=== PATIENT | male | born 1995 | race Caucasian/White ===

== ENCOUNTER 2017-01-10 13:04 | Inpatient (IN) ==
[2017-01-10 13:28] LABS: Bilirubin,Urine Negative (Negative); Blood,Urine Negative (Negative); Clarity,Urine Clear (Clear); Color,Urine Yellow (Yellow); Glucose,Urine (UA) Normal (Normal); Ketones,Urine Negative (Negative); Leukocyte Esterase,Urine Negative (Negative); Nitrite,Urine Negative (Negative); Protein,Urine Negative (Neg-Trace); Specific Gravity,Urine 1.028 (1.010-1.025); Urobilinogen,Urine Normal (Normal)
--- NOTE | 2017-01-10 13:32 | Emergency Department Note ---
Disposition Clinical Impression: Suicidal ideation Disposition: Admitted As Inpatient Condition: Good Referrals: NONE,PCP [Primary Care Provider] - Forms: ED Satisfaction Letter Time of Disposition: 17:50 Psych HPI - General Chief Complaint: ED Psychiatric Symptoms Stated Complaint: SI, after a terrible break up Time Seen by Provider: 01/10/17 13:07 Source: patient, family Mode of arrival: ambulatory Limitations: no limitations Nursing Notes Reviewed: Yes Vital Signs Reviewed: Yes - History of Present Illness HPI Narrative: 21-year-old male presenting to the emergency department with suicidal ideation and plan. The patient states a girlfriend recently treated on and wanted to commit suicide by taking an entire bottle of Flexeril. He also had homicidal ideations against the man that she cheated on him with. He denies any specific plan to hurt this man. Patient denies any intentional ingestion or self-harm prior to arrival. He states he has never been admitted for psychiatric issues before. Patient is currently being treated for hypothyroidism but has no other medical conditions. Patient denies auditory or visual hallucinations. The patient states he does have fluttering in his chest which started last night he states this commonly occurs when he gets stressed. Patient has no significant cardiac history. Patient otherwise has no complaints of concerns of this time. - Related Data Home Medications Medication Instructions Recorded Confirmed Levothyroxine [Synthroid] 75 mcg PO 0630 10/16/15 10/16/15 Levothyroxine [Synthroid] 150 mcg PO 0630 10/16/15 10/16/15 Allergies Allergy/AdvReac Type Severity Reaction Status Date / Time montelukast [From Singulair] Allergy Rash Verified 01/10/17 13:10 All systems ED: reviewed and negative except as stated. Constitutional: Denies: fever, chills, weakness Eyes: Reports: as per HPI ENT ED: Reports: as per HPI Cardiovascular: Reports: palpitations. Denies: chest pain, dyspnea on exertion Respiratory: Denies: cough, dyspnea, wheezes Gastrointestinal: Denies: abdominal pain, nausea, vomiting Genitourinary: Reports: as per HPI Musculoskeletal: Reports: as per HPI Integumentary: Reports: as per HPI Neurological: Denies: weakness, numbness, paresthesias Psychiatric: Reports: depression, suicidal thoughts, homicidal thoughts Endocrine: Reports: as per HPI Hematological/Lymphatic: Reports: as per HPI Allergic/Immunologic: Reports: as per HPI Past Medical History - Past Medical History Attestation: Yes The following information was validated with the patient. Medical history: Reports: asthma, thyroid disease Surgical history: Reports: appendectomy, other (tonsillectomy, grommetts tube insertion and removal.) Psychiatric history: Reports: anxiety, depression - Social History Smoking Status: Current every day smoker Smokeless Tobacco Status: No Alcohol use: Reports: occasionally Drug use: Reports: marijuana Physical Exam - General Limitations: no limitations General appearance: alert, in no apparent distress - Head Head exam: atraumatic, normocephalic, normal inspection - Eye Eye exam: Present: normal appearance. Absent: scleral icterus, conjunctival injection - Chest Chest inspection: Present: normal inspection, symmetric chest wall rise. Absent : tenderness, rash - Respiratory Respiratory exam: Present: normal lung sounds bilaterally. Absent: respiratory distress, wheezes - Cardiovascular Cardiovascular exam: Present: regular rate, normal rhythm, normal heart sounds - Abdominal Exam Abdominal exam: Present: soft, Non-Tender. Absent: distention, guarding, rebound - Extremities Exam Extremities exam: Present: normal inspection, full ROM - Neurological Exam Neurological exam: Present: alert, oriented X3 - Psychiatric Psychiatric exam: Present: depressed, flat affect, homicidal ideation, suicidal ideation - Skin Skin exam: Present: warm, intact Course Course Narrative: 21-year-old male presenting to the emergency department with suicidal and homicidal ideation. He states he does have some chest fluttering. We will obtain psychiatric lab work along with EKG, troponin, TSH level. Disposition will be dependent on status of psychiatric workup. Patient's alert and oriented 3 with stable vital signs at this time. Patient agrees with this plan. Family at bedside. - Reevaluation(s) Reevaluation #1: The patient was evaluated by 1a and they determined that he needed to have inpatient psychiatric evaluation. Dr. Whitley accepts the patient at this time. Patient is alert and oriented 3 with stable vital signs at this time. Time: 17:50 Vital Signs Temperature 98.0 F 01/10/17 13:05 Pulse Rate 86 01/10/17 13:05 Respiratory Rate 20 01/10/17 13:05 Blood Pressure 130/88 01/10/17 13:05 O2 Sat by Pulse Oximetry 98 01/10/17 13:05 Temperature 97.9 F 01/10/17 15:09 Pulse Rate 82 01/10/17 15:09 Respiratory Rate 18 01/10/17 15:09 Blood Pressure 125/77 01/10/17 15:09 O2 Sat by Pulse Oximetry 99 01/10/17 15:09 Oxygen Delivery Oxygen Delivery Room Air Psych - Lab Data Result diagrams: 01/10/17 13:28 01/10/17 13:28 Lab Results 01/10/17 01/10/17 01/10/17 Range/Units 13:20 13:20 13:28 WBC 11.4 H (4.3-11.1) K/mcL RBC 5.80 H (4.19-5.50) M/mcL Hgb 17.0 H (12.9-16.9) g/dL Hct 50.5 H (37.5-50.1) % MCV 87.1 (83.0-100.0) fL MCH 29.3 (28.0-33.3) pg MCHC 33.7 (31.6-35.5) g/dL RDW 13.9 (11.5-14.5) % Plt Count 233 (140-400) K/mcL MPV 11.6 (9.4-12.4) fL Immature Gran % 0.3 (0-4) % Seg Neutrophils % 64.2 % Lymphocytes % 26.6 % Monocytes % 6.9 % Eosinophils % 1.4 % Basophils % 0.6 % Neutrophils # 7.3 (1.6-8.9) K/mcL Lymphocytes # 3.0 (0.6-4.6) K/mcL Monocytes # 0.8 (0.0-1.3) K/mcL Eosinophils # 0.2 (0.0-0.6) K/mcL Basophils # 0.1 (0.0-0.2) K/mcL Sodium (136-145) mEq/L Potassium (3.5-4.5) mEq/L Chloride (98-109) mEq/L Carbon Dioxide (19-29) mEq/L BUN (8-26) mg/dL Creatinine (0.72-1.25) mg/dL Est GFR ( Amer) (> 60) Est GFR (Non-Af Amer) (> 60) BUN/Creatinine Ratio (6-26) Glucose (70-99) mg/dL Calculated Osmolality (280-300) Calcium (8.6-10.8) mg/dL Troponin I (0-0.03) ng/mL TSH (0.350-4.840) mcIU/mL Free T4 (0.70-1.48) ng/dl Thyroxine (T4) (4.87-11.72) mcg/dL Free T3 (1.71-3.71) pg/mL Total T3 (0.58-1.59) ng/mL Urine Color Yellow (Yellow) Urine Clarity Clear (Clear) Urine pH 6.0 (5.0-8.0) pH Units Ur Specific [place] 1.028 H (1.010-1.025) Urine Protein Negative (Neg-Trace) mg/dL Urine Glucose (UA) Normal (Normal) mg/dL Urine Ketones Negative (Negative) mg/dL Urine Blood Negative (Negative) Urine Nitrite Negative (Negative) Urine Bilirubin Negative (Negative) Urine Urobilinogen Normal (Normal) mg/dL Ur Leukocyte Esterase Negative (Negative) Salicylates (15-30) mg/dL Urine Opiates Screen Negative (Bbfblf=294) ng/mL Acetaminophen (10-30) mcg/mL Ur Barbiturates Screen Negative (Ggtmcq=476) ng/mL Ur Phencyclidine Scrn Negative (Cutoff=25) ng/mL Ur Amphetamines Screen Negative (Ztutwu=7137) ng/mL U Benzodiazepines Scrn Negative (Ekpfst=245) ng/mL Urine Cocaine Screen Negative (Cutoff= 300) ng/mL U Marijuana (THC) Screen Positive H (Cutoff = 50) ng/mL Ethyl Alcohol (0-10) mg/dL 01/10/17 01/10/17 01/10/17 Range/Units 13:28 13:28 15:11 WBC (4.3-11.1) K/mcL RBC (4.19-5.50) M/mcL Hgb (12.9-16.9) g/dL Hct (37.5-50.1) % MCV (83.0-100.0) fL MCH (28.0-33.3) pg MCHC (31.6-35.5) g/dL RDW (11.5-14.5) % Plt Count (140-400) K/mcL MPV (9.4-12.4) fL Immature Gran % (0-4) % Seg Neutrophils % % Lymphocytes % % Monocytes % % Eosinophils % % Basophils % % Neutrophils # (1.6-8.9) K/mcL Lymphocytes # (0.6-4.6) K/mcL Monocytes # (0.0-1.3) K/mcL Eosinophils # (0.0-0.6) K/mcL Basophils # (0.0-0.2) K/mcL Sodium 140 (136-145) mEq/L Potassium 4.1 (3.5-4.5) mEq/L Chloride 107 (98-109) mEq/L Carbon Dioxide 22 (19-29) mEq/L BUN 10 (8-26) mg/dL Creatinine 1.25 (0.72-1.25) mg/dL Est GFR ( Amer) > 60 (> 60) Est GFR (Non-Af Amer) > 60 (> 60) BUN/Creatinine Ratio 8 (6-26) Glucose 91 (70-99) mg/dL Calculated Osmolality 289 (280-300) Calcium 9.8 (8.6-10.8) mg/dL Troponin I 0.00 (0-0.03) ng/mL TSH > 500.000 H (0.350-4.840) mcIU/mL Free T4 < 0.40 L (0.70-1.48) ng/dl Thyroxine (T4) (4.87-11.72) mcg/dL Free T3 1.37 L (1.71-3.71) pg/mL Total T3 (0.58-1.59) ng/mL Urine Color (Yellow) Urine Clarity (Clear) Urine pH (5.0-8.0) pH Units Ur Specific [place] (1.010-1.025) Urine Protein (Neg-Trace) mg/dL Urine Glucose (UA) (Normal) mg/dL Urine Ketones (Negative) mg/dL Urine Blood (Negative) Urine Nitrite (Negative) Urine Bilirubin (Negative) Urine Urobilinogen (Normal) mg/dL Ur Leukocyte Esterase (Negative) Salicylates < 5.0 L (15-30) mg/dL Urine Opiates Screen (Pfxkqu=862) ng/mL Acetaminophen < 1.0 L (10-30) mcg/mL Ur Barbiturates Screen (Atugqa=243) ng/mL Ur Phencyclidine Scrn (Cutoff=25) ng/mL Ur Amphetamines Screen (Ypxfwq=2036) ng/mL U Benzodiazepines Scrn (Pyyaej=102) ng/mL Urine Cocaine Screen (Cutoff= 300) ng/mL U Marijuana (THC) Screen (Cutoff = 50) ng/mL Ethyl Alcohol < 10 (0-10) mg/dL 01/10/17 Range/Units 15:11 WBC (4.3-11.1) K/mcL RBC (4.19-5.50) M/mcL Hgb (12.9-16.9) g/dL Hct (37.5-50.1) % MCV (83.0-100.0) fL MCH (28.0-33.3) pg MCHC (31.6-35.5) g/dL RDW (11.5-14.5) % Plt Count (140-400) K/mcL MPV (9.4-12.4) fL Immature Gran % (0-4) % Seg Neutrophils % % Lymphocytes % % Monocytes % % Eosinophils % % Basophils % % Neutrophils # (1.6-8.9) K/mcL Lymphocytes # (0.6-4.6) K/mcL Monocytes # (0.0-1.3) K/mcL Eosinophils # (0.0-0.6) K/mcL Basophils # (0.0-0.2) K/mcL Sodium (136-145) mEq/L Potassium (3.5-4.5) mEq/L Chloride (98-109) mEq/L Carbon Dioxide (19-29) mEq/L BUN (8-26) mg/dL Creatinine (0.72-1.25) mg/dL Est GFR ( Amer) (> 60) Est GFR (Non-Af Amer) (> 60) BUN/Creatinine Ratio (6-26) Glucose (70-99) mg/dL Calculated Osmolality (280-300) Calcium (8.6-10.8) mg/dL Troponin I (0-0.03) ng/mL TSH (0.350-4.840) mcIU/mL Free T4 (0.70-1.48) ng/dl Thyroxine (T4) 2.03 L (4.87-11.72) mcg/dL Free T3 (1.71-3.71) pg/mL Total T3 0.62 (0.58-1.59) ng/mL Urine Color (Yellow) Urine Clarity (Clear) Urine pH (5.0-8.0) pH Units Ur Specific [place] (1.010-1.025) Urine Protein (Neg-Trace) mg/dL Urine Glucose (UA) (Normal) mg/dL Urine Ketones (Negative) mg/dL Urine Blood (Negative) Urine Nitrite (Negative) Urine Bilirubin (Negative) Urine Urobilinogen (Normal) mg/dL Ur Leukocyte Esterase (Negative) Salicylates (15-30) mg/dL Urine Opiates Screen (Ibbqie=813) ng/mL Acetaminophen (10-30) mcg/mL Ur Barbiturates Screen (Efbemn=587) ng/mL Ur Phencyclidine Scrn (Cutoff=25) ng/mL Ur Amphetamines Screen (Cauxym=1117) ng/mL U Benzodiazepines Scrn (Zmstcc=506) ng/mL Urine Cocaine Screen (Cutoff= 300) ng/mL U Marijuana (THC) Screen (Cutoff = 50) ng/mL Ethyl Alcohol (0-10) mg/dL - EKG Data EKG attestation: Yes I reviewed and interpreted this EKG. EKG results narrative: Sinus rhythm with sinus arrhythmia. 81 bpm. MO interval 179, QRS 90, QTC 396. No signs of ST segment elevation or ischemia noted. Psychiatric Medical Clearance - Medical Clearance Checklist Medical History: Heat exhaustion due to salt depletion, initial encounter (Acute) Suicidal ideation (Acute) Acute renal insufficiency (Inactive) Dehydration (Inactive) Migraine (Inactive) Nausea & vomiting (Inactive) Near syncope (Inactive) No Social History Section defined Current Vitals: Last Vital Signs Temp 97.9 F 01/10/17 15:09 Pulse 82 01/10/17 15:09 Resp 18 01/10/17 15:09 BP 125/77 01/10/17 15:09 Pulse Ox 99 01/10/17 15:09 Psychiatric Lab Panel: Drug Levels and Toxicity 01/10/17 01/10/17 13:20 13:28 Urine Opiates Screen Negative Acetaminophen < 1.0 L Ur Barbiturates Screen Negative Ur Phencyclidine Scrn Negative Ur Amphetamines Screen Negative U Benzodiazepines Scrn Negative Urine Cocaine Screen Negative U Marijuana (THC) Screen Positive H Ethyl Alcohol < 10 Abnormal Labs: Abnormal lab results WBC 11.4 K/mcL (4.3-11.1) H 01/10/17 13:28 RBC 5.80 M/mcL (4.19-5.50) H 01/10/17 13:28 Hgb 17.0 g/dL (12.9-16.9) H 01/10/17 13:28 Hct 50.5 % (37.5-50.1) H 01/10/17 13:28 TSH > 500.000 mcIU/mL (0.350-4.840) H 01/10/17 13:28 Free T4 < 0.40 ng/dl (0.70-1.48) L 01/10/17 15:11 Thyroxine (T4) 2.03 mcg/dL (4.87-11.72) L 01/10/17 15:11 Free T3 1.37 pg/mL (1.71-3.71) L 01/10/17 15:11 Ur Specific [place] 1.028 (1.010-1.025) H 01/10/17 13:20 Salicylates < 5.0 mg/dL (15-30) L 01/10/17 13:28 Acetaminophen < 1.0 mcg/mL (10-30) L 01/10/17 13:28 U Marijuana (THC) Screen Positive ng/mL (Cutoff = 50) H 01/10/17 13:20 Attestation Statement - Attestation Attestation: I, Barry Holguin DO, examined this patient [id number] and my medical decision-making was reviewed with Dr. Cherelle Covarrubias, Resident Physician. I agree with the documented findings, disposition and treatment plan as described except to the extent set forth below. Please see my progress notes for details. 21-year-old male presents to emergency room with significant depression and suicidal ideation. He says that his plan at this time is to take a large dose of Flexeril which she has access to home. Patient recently broke up with his girlfriend since then has been very depressed and feeling like he does not deserve to live. Otherwise patient denies any other symptoms or complaints. Denies any ingestion at this time. Clinically his vital signs are stable and is mentating appropriately. He is withdrawn during the examination appears to not want to answer questions. Lungs are clear heart is regular abdomen is soft. Screening psychiatric evaluation be completed in psychiatric team will evaluate and emergency room. See detailed documentation of physical exam, medical intervention, medical decision-making and disposition and the resident physician's note. 1755 Patient except as a psychiatric facility for evaluation. Patient will be admitted at this time.
[2017-01-10 13:45] LABS: Basophils # 0.1 K/mcL (0.0-0.2); Basophils % 0.6 %; Eosinophils # 0.2 K/mcL (0.0-0.6); Eosinophils % 1.4 %; Hematocrit 50.5 % (37.5-50.1); Immature Granulocytes % 0.3 % (0-4); Lymphocytes % 26.6 %; Mean Corpuscular HGB Conc 33.7 g/dL (31.6-35.5); Mean Corpuscular Hemoglobin 29.3 pg (28.0-33.3); Mean Corpuscular Volume 87.1 fL (83.0-100.0); Mean Platelet Volume 11.6 fL (9.4-12.4); Monocytes # 0.8 K/mcL (0.0-1.3); Monocytes % 6.9 %; Neutrophils # 7.3 K/mcL (1.6-8.9); Platelet Count 233 K/mcL (140-400); Red Cell Distribution Width 13.9 % (11.5-14.5); Segmented Neutrophils % 64.2 %
[2017-01-10 14:03] LABS: BUN/Creatinine Ratio 8 (6-26); Blood Urea Nitrogen 10 mg/dL (8-26); Calcium 9.8 mg/dL (8.6-10.8); Carbon Dioxide 22 mEq/L (19-29); Chloride 107 mEq/L (98-109); Glucose 91 mg/dL (70-99); Osmolality,Calculated 289 (280-300); Potassium 4.1 mEq/L (3.5-4.5); Sodium 140 mEq/L (136-145); eGFR For African Americans > 60 (> 60); eGFR For Non-African Americans > 60 (> 60)
[2017-01-10 14:05] LABS: Acetaminophen < 1.0 mcg/mL (10-30); Ethanol < 10 mg/dL (0-10); Salicylate < 5.0 mg/dL (15-30)
[2017-01-10 14:25] LABS: Amphetamine Screen,Urine Negative ng/mL (Cutoff=1000); Barbiturate Screen,Urine Negative ng/mL (Cutoff=200); Benzodiazepines Screen,Urine Negative ng/mL (Cutoff=200); Cannabinoid Screen,Urine Positive ng/mL (Cutoff = 50); Cocaine Screen,Urine Negative ng/mL (Cutoff= 300); Opiate Screen,Urine Negative ng/mL (Cutoff=300); Phencyclidine Screen,Urine Negative ng/mL (Cutoff=25)
[2017-01-10 14:54] LABS: Thyroid Stimulating Hormone > 500.000 mcIU/mL (0.350-4.840)
[2017-01-10 15:58] LABS: Triiodothyronine (T3) Total 0.62 ng/mL (0.58-1.59)
[2017-01-10 15:59] LABS: Triiodothyronine (T3) Free 1.37 pg/mL (1.71-3.71)
[2017-01-11] MEDS ORDERED: *HR* LORazepam 2 MG/ML VIAL IM PRN (08:22)
[2017-01-11] MEDS ORDERED: Ibuprofen 400 MG TABLET PO PRN (08:22)
[2017-01-11] MEDS ORDERED: MOM Conc 10 ML UD.LIQ PO PRN (08:22)
[2017-01-11] MEDS ORDERED: Haloperidol Lactate 5 MG/ML VIAL IM PRN (08:22)
[2017-01-11] MEDS ORDERED: traZODone 50 MG TABLET PO PRN (08:22)
[2017-01-11] MEDS ORDERED: *HR* LORazepam 1 MG TABLET PO PRN (08:22)
[2017-01-11] MEDS ORDERED: hydrOXYzine pamoate 25 MG CAPSULE PO PRN (08:22)
[2017-01-11] MEDS ORDERED: Mag Hydrox/Al Hydrox/Simeth 30 ML UDC PO PRN (08:22)
--- NOTE | 2017-01-11 15:34 | Psychiatry History & Physical ---
Date of Encounter: 01/11/17 Time of Encounter: 15:27 History of Present Illness Patient Stated Chief Complaint: suicidal ideation Medicare Admission Attestation: For traditional Medicare patients the provided hospital inpatient services are reasonable and necessary and in the case of services not specified as inpatient -only under 42 CFR 419.22 (n), that they are appropriately provided as inpatient services in accordance 42 CFR 412.3. For Critical Access Hospital the patient may reasonably be expected to be discharged or transferred to a hospital within 96 hours after admission to the Critical Access Hospital. Admitted From: Home Plans for Post Hospital Care: Home History of Present Illness: Mr. Pacheco is a 21 year old male who was admitted secondary to suicidal ideation. Client reports his main stressors are the transmission going out in his car, the carburetor going out in his truck, and discovering his girlfriend has been cheating on him for the last three weeks. Client reports he has experienced SI in the past but has always been able to work through it. Took Zoloft once from his PCP and claims it really helped him but he had to stop for financial reasons. Occasionally drinks and smokes THC. Obese and hypothyroid but otherwise physically healthy. TSH over 500. Discussed lab results with client and how hypothyroidism can contribute to depression. Client claims he was last on 300mcg of Synthroid but has been noncompliant. Will restart at a lower dose and refer him for primary care follow-up. Past Med Surg Social Fam HX - Past Medical History Medical history: asthma, thyroid disease - Past Surgical History Surgical History: appendectomy, other - Social History Smoking Status: Current every day smoker Smokeless Tobacco Status: No Alcohol use: occasionally Drug use: marijuana Medications & Allergies Levothyroxine Sodium [Synthroid] 300 mcg PO DAILY 01/11/17 [History] 3 Allergy/AdvReac Type Severity Reaction Status Date / Time montelukast [From Singulair] Allergy Rash Verified 01/10/17 13:10 Results - Vital Signs Vital signs: Temp Pulse Resp BP Pulse Ox 98.3 F 76 16 118/82 99 01/11/17 09:00 01/11/17 09:00 01/11/17 09:00 01/11/17 09:00 01/10/17 15:09 - Labs Labs: Laboratory Last Values WBC 11.4 K/mcL (4.3-11.1) H 01/10/17 13:28 RBC 5.80 M/mcL (4.19-5.50) H 01/10/17 13:28 Hgb 17.0 g/dL (12.9-16.9) H 01/10/17 13:28 Hct 50.5 % (37.5-50.1) H 01/10/17 13:28 MCV 87.1 fL (83.0-100.0) 01/10/17 13:28 MCH 29.3 pg (28.0-33.3) 01/10/17 13:28 MCHC 33.7 g/dL (31.6-35.5) 01/10/17 13:28 RDW 13.9 % (11.5-14.5) 01/10/17 13:28 Plt Count 233 K/mcL (140-400) 01/10/17 13:28 MPV 11.6 fL (9.4-12.4) 01/10/17 13:28 Immature Gran % 0.3 % (0-4) 01/10/17 13:28 Seg Neutrophils % 64.2 % 01/10/17 13:28 Lymphocytes % 26.6 % 01/10/17 13:28 Monocytes % 6.9 % 01/10/17 13:28 Eosinophils % 1.4 % 01/10/17 13:28 Basophils % 0.6 % 01/10/17 13:28 Neutrophils # 7.3 K/mcL (1.6-8.9) 01/10/17 13:28 Lymphocytes # 3.0 K/mcL (0.6-4.6) 01/10/17 13:28 Monocytes # 0.8 K/mcL (0.0-1.3) 01/10/17 13:28 Eosinophils # 0.2 K/mcL (0.0-0.6) 01/10/17 13:28 Basophils # 0.1 K/mcL (0.0-0.2) 01/10/17 13:28 Sodium 140 mEq/L (136-145) 01/10/17 13:28 Potassium 4.1 mEq/L (3.5-4.5) 01/10/17 13:28 Chloride 107 mEq/L (98-109) 01/10/17 13:28 Carbon Dioxide 22 mEq/L (19-29) 01/10/17 13:28 BUN 10 mg/dL (8-26) 01/10/17 13:28 Creatinine 1.25 mg/dL (0.72-1.25) 01/10/17 13:28 Est GFR ( Amer) > 60 (> 60) 01/10/17 13:28 Est GFR (Non-Af Amer) > 60 (> 60) 01/10/17 13:28 BUN/Creatinine Ratio 8 (6-26) 01/10/17 13:28 Glucose 91 mg/dL (70-99) 01/10/17 13:28 Calculated Osmolality 289 (280-300) 01/10/17 13:28 Calcium 9.8 mg/dL (8.6-10.8) 01/10/17 13:28 Troponin I 0.00 ng/mL (0-0.03) 01/10/17 13:28 TSH > 500.000 mcIU/mL (0.350-4.840) H 01/10/17 13:28 Free T4 < 0.40 ng/dl (0.70-1.48) L 01/10/17 15:11 Thyroxine (T4) 2.03 mcg/dL (4.87-11.72) L 01/10/17 15:11 Free T3 1.37 pg/mL (1.71-3.71) L 01/10/17 15:11 Total T3 0.62 ng/mL (0.58-1.59) 01/10/17 15:11 Urine Color Yellow (Yellow) 01/10/17 13:20 Urine Clarity Clear (Clear) 01/10/17 13:20 Urine pH 6.0 pH Units (5.0-8.0) 01/10/17 13:20 Ur Specific [place] 1.028 (1.010-1.025) H 01/10/17 13:20 Urine Protein Negative mg/dL (Neg-Trace) 01/10/17 13:20 Urine Glucose (UA) Normal mg/dL (Normal) 01/10/17 13:20 Urine Ketones Negative mg/dL (Negative) 01/10/17 13:20 Urine Blood Negative (Negative) 01/10/17 13:20 Urine Nitrite Negative (Negative) 01/10/17 13:20 Urine Bilirubin Negative (Negative) 01/10/17 13:20 Urine Urobilinogen Normal mg/dL (Normal) 01/10/17 13:20 Ur Leukocyte Esterase Negative (Negative) 01/10/17 13:20 Salicylates < 5.0 mg/dL (15-30) L 01/10/17 13:28 Urine Opiates Screen Negative ng/mL (Ixyeyy=474) 01/10/17 13:20 Acetaminophen < 1.0 mcg/mL (10-30) L 01/10/17 13:28 Ur Barbiturates Screen Negative ng/mL (Gpimdy=441) 01/10/17 13:20 Ur Phencyclidine Scrn Negative ng/mL (Cutoff=25) 01/10/17 13:20 Ur Amphetamines Screen Negative ng/mL (Tmtwqq=6832) 01/10/17 13:20 U Benzodiazepines Scrn Negative ng/mL (Vqugif=292) 01/10/17 13:20 Urine Cocaine Screen Negative ng/mL (Cutoff= 300) 01/10/17 13:20 U Marijuana (THC) Screen Positive ng/mL (Cutoff = 50) H 01/10/17 13:20 Ethyl Alcohol < 10 mg/dL (0-10) 01/10/17 13:28 Assessment and Plan (1) Major depress dis, severe Current visit: Yes Status: Acute Plan: Admit inpatient for safety and stabilization, Close observation, Suicide Precautions per unit protocol, Encourage participation in unit milieu, Group Therapy, Monitor sleep, Monitor appetite Risks, benefits, side effects, alternatives discussed w/pt: Yes Patient agreeable to treatment: Yes Plans for Post Hospital Care: Home Estimated Length of Stay (Days): 4
--- NOTE | 2017-01-11 18:01 | Electrocardiograph Report ---
[place] [id number] Test Date: 2017-01-10 Pat Name: Jason Pacheco Department: 103 Room: 1A44 Gender: M Last Scourer: AM : 1995 Requested By: Cherelle Covarrubias Order Number: [id number] Reading MD: Pravin Tobin MD Measurements Intervals [place] Rate: 81 P: 27 SC: 159 QRS: 59 QRSD: 90 T: 15 QT: 359 QTc: 396 Interpretive Statements SINUS RHYTHM WITH SINUS ARRHYTHMIA Electronically Signed On 01-11-2017 17:59:37 EST by Pravin Tobin MD
[2017-01-11] MEDS: Nicotine 2 MG GUM BC PRN (20:26)
[2017-01-12 09:32] VITALS: BP 124/88
[2017-01-12] MEDS: Nicotine 2 MG GUM BC PRN (09:33)
--- NOTE | 2017-01-12 11:19 | Discharge Summary ---
Date of Encounter: 01/12/17 Time of Encounter: : Diagnosis - Discharge Diagnosis (1) Major depress dis, severe Status: Acute Medications - Discharge Medications Prescriptions: Levothyroxine [Synthroid] 100 mcg PO DAILY@0630 #35 tablet Sertraline [Zoloft] 50 mg PO DAILY #35 tablet Levothyroxine [Synthroid] 100 mcg PO DAILY@0630 #35 tablet 01/12/17 [Rx] Sertraline [Zoloft] 50 mg PO DAILY #35 tablet 01/12/17 [Rx] 3 Allergy/AdvReac Type Severity Reaction Status Date / Time montelukast [From Singulair] Allergy Rash Verified 01/10/17 13:10 Provider Date of admission: 01/10/17 18:02 Primary care physician: PCP NONE Discharging clinician: Shaunna Whitley Assessment and Plan - Patient/Caregiver Discharge Instructions Activity: resume usual activities as tolerated Diet: regular diet - Follow up Plan Follow up with: [facility] [Outside] Janis Loredo MD [Non-Partnered Physician] - 02/12/17 11:40 am (The above appointment is with Dr. Loredo. Please bring photo ID, medication list, insurance card, and co-pay if you have one.) Overall status at discharge: Stable Disposition: Home, Self-Care Hospital Course Hospital course: Mr. Pacheco is a 21 year old male who was admitted secondary to SI. He was restarted on Zoloft which is an antidepressant he indicated worked for him in the past. He was also given 100mcg of Synthroid for a TSH of over 500. According to client he has been prescribed up to 300mcg in the past but that he has been noncompliant for over a year. Discussed how hypothyroidism can have a severe impact on mood. He was set up with Medicaid and given a five week prescription of his meds so that he should have medical coverage by the time he has his appointments and his medications run out. Client was denying all SI after a good night's sleep and getting started on his medications. He had been stressed over a break up with his girlfriend but he was able to put things in perspective after coming into the hospital. He lives with his mother and stated she is very supportive of him and that going home would be a good thing. He was visibly brighter and appeared happy on the day of discharge. He had no evidence of a thought disorder. He was denying all SI/HI at the time of discharge. - Time Spent with Patient Total time spent providing and/or coordinating discharge services: Quality - Multiple Antipsychotics Patient discharged on 2 or more antipsychotic medications: No Procedures - Procedures Procedures: Medication Management, Crisis Stabilization, Supportive Therapy, Group Therapy Mental Status Exam - Mental Status Exam Patient orientation: Yes Person, Yes Time, Yes Place Level of alertness: Alert Patient appearance: Appropriate Behavior: calm, cooperative Psychomotor activity: Normal Eye contact: Maintains Eye Contact Mood description: Euthymic/stable Affect description: congruent with mood, full range Speech pattern: Normal rate, Normal rhythm, Normal tone Speech Volume: Normal Thought process: Linear, Goal Oriented Thought Content: No Suicidal ideation, No Homicidal ideation, No Overt delusions Perceptual Disturbances: No Reacting to internal stimuli, No Auditory hallucinations, No Visual hallucinations Judgment: Fair Insight: Partial
[2017-01-15 08:10] LABS: Thyroglobulin Antibody <0.9 IU/mL (0.0-4.0)
== END 2017-01-12 14:13 | disposition home or self-care (01) | DRG 751 ==
LOC: EMEROO 13:04 → 1ANU 18:02
PROVIDERS: ADMIT Psychiatry & Neurology Psychiatry; ATTEND Psychiatry & Neurology Psychiatry